=== PATIENT | male | born 1945 | race African-American/Black ===

== ENCOUNTER 2021-03-25 18:49 | Inpatient (IN) | payer SELFPAY ==
[~2021-03-25] VITALS: Ht 185.4 cm; Wt 85.3 kg
[2021-03-25] MEDS ORDERED: LORAZEPAM 2MG/ML CPJ IM STA (19:38)
[2021-03-25] MEDS ORDERED: DIPHENHYDRAMINE 50MG/ML VIAL IM STA (19:38)
[2021-03-25] MEDS ORDERED: HALOPERIDOL LACTATE 5MG/ML VIAL IM STA (19:38)
[2021-03-25 20:38] LABS: *AMPHETAMINES SCREEN URINE NEGATIVE (NEGATIVE)
[2021-03-25 20:39] LABS: *BARBITURATES SCREEN URINE NEGATIVE (NEGATIVE); *BENZODIAZEPINES SCREEN URINE NEGATIVE (NEGATIVE); *COCAINE SCREEN URINE NEGATIVE (NEGATIVE); CANNABINOID URINE SCREEN PRESUMTIVE POSITIVE (NEGATIVE); METHADONE URINE SCREEN NEGATIVE (NEGATIVE); OPIATES URINE SCREEN NEGATIVE (NEGATIVE); PHENCYCLIDINE URINE SCREEN NEGATIVE (NEGATIVE)
[2021-03-25] MEDS ORDERED: HALOPERIDOL LACTATE 5MG/ML VIAL IM ONE (20:45)
[2021-03-25] MEDS ORDERED: LORAZEPAM 2MG/ML CPJ IV ONE ×2 (21:15→23:00)
[2021-03-25 21:23] LABS: BASOPHILS % 0.4 % (0.0-2.0); EOSINOPHILS % 1.2 % (0.0-5.0); HEMATOCRIT. 38.5 % (42.0-52.0); HEMOGLOBIN. 12.8 g/dL (14.0-18.0); LYMPHOCYTES % 9.1 % (20.0-50.0); MEAN CORPUSCULAR HEMOGLOBIN 31.7 pg (28.0-32.0); MEAN CORPUSCULAR VOLUME 94.9 fL (80.0-94.0); MEAN PLATELET VOLUME 9.1 fl (7.4-10.4); MONOCYTES % 6.9 % (2.0-8.0); NEUTROPHILS % 82.4 % (40.0-76.0); PLATELET 245 x1000/uL (130-400); RED BLOOD CELL COUNT 4.06 mill/uL (4.7-6.1); RED CELL DISTRIBUTION WIDTH 14.6 % (11.6-14.6)
[2021-03-25 21:29] LABS: CHLORIDE 112 mEq/L (98-107)
[2021-03-25 21:34] LABS: ETHANOL BLOOD < 10 mg/dL
[2021-03-25] MEDS ORDERED: SODIUM CHLORIDE 0.9% 1,000 ML IV ONE (22:00)
[2021-03-26] MEDS ORDERED: LORAZEPAM 2MG/ML CPJ IV PRN (07:45)
[2021-03-26] MEDS ORDERED: HALOPERIDOL LACTATE 5MG/ML VIAL IM PRN (10:30)
[2021-03-26] MEDS ORDERED: DEXTROSE 50% WATER 50ML SYRINGE IV PRN (10:30)
[2021-03-26] MEDS ORDERED: ONDANSETRON HCL 4MG/2ML INJ IV PRN (10:30)
[2021-03-26] MEDS: SODIUM CHLORIDE 0.45% 1,000 ML IV SCH ×2 (10:30→23:50)
[2021-03-26] MEDS ORDERED: ACETAMINOPHEN 325MG TABLET PO PRN (10:30)
[2021-03-26] MEDS: LORAZEPAM 2MG/ML CPJ IV PRN ×2 (10:44→17:10)
[2021-03-26] MEDS: BLOOD SUGAR DIAGNOSTIC STRIP TEST SCH ×3 (11:30→21:41)
[2021-03-26] MEDS: INSULIN LISPRO 100 UNITS/ML SUBCUT SCH ×3 (17:00→21:00)
[2021-03-26] MEDS ORDERED: HALOPERIDOL LACTATE 5MG/ML VIAL IM NR (18:30)
[2021-03-26 20:52] LABS: CLARITY URINE CLEAR (CLEAR); COLOR URINE YELLOW (YELLOW); KETONES URINE NEGATIVE (NEGATIVE); LEUKOCYTE ESTERASE URINE NEGATIVE (NEGATIVE); NITRITE URINE NEGATIVE (NEGATIVE); OCCULT BLOOD URINE 3+ (NEGATIVE); PH URINE 5.5 (4.5-8.0); PROTEIN URINE 3+ (NEGATIVE); SPECIFIC GRAVITY URINE 1.018 (1.005-1.030); UROBILINOGEN URINE 0.2 E.U./dL (0.2-1.0)
[2021-03-26 22:10] VITALS: BP 147/87
[2021-03-27] VITALS: BP 147/87
[2021-03-27 04:00] VITALS: BP 144/91
[2021-03-27] MEDS ORDERED: LISI10TA26 MT (04:46)
[2021-03-27] MEDS ORDERED: METF500T MT (04:46)
[2021-03-27] MEDS ORDERED: HYDR-4135 MT (04:48)
[2021-03-27] MEDS: BLOOD SUGAR DIAGNOSTIC STRIP TEST SCH ×2 (06:42→13:13)
[2021-03-27 07:13] LABS: BASOPHILS % 0.5 % (0.0-2.0); EOSINOPHILS % 2.3 % (0.0-5.0); HEMATOCRIT. 41.2 % (42.0-52.0); HEMOGLOBIN. 13.9 g/dL (14.0-18.0); LYMPHOCYTES % 15.8 % (20.0-50.0); MEAN CORPUSCULAR HEMOGLOBIN 31.9 pg (28.0-32.0); MEAN CORPUSCULAR VOLUME 94.9 fL (80.0-94.0); MEAN PLATELET VOLUME 9.4 fl (7.4-10.4); MONOCYTES % 8.4 % (2.0-8.0); PLATELET 251 x1000/uL (130-400); RED BLOOD CELL COUNT 4.35 mill/uL (4.7-6.1); RED CELL DISTRIBUTION WIDTH 14.5 % (11.6-14.6)
[2021-03-27 07:43] LABS: CHLORIDE 111 mEq/L (98-107)
[2021-03-27 08:00] VITALS: BP 162/96
[2021-03-27] MEDS: INSULIN LISPRO 100 UNITS/ML SUBCUT SCH ×2 (08:35→13:13)
[2021-03-27 12:00] VITALS: BP 145/93
[2021-03-27] MEDS: SODIUM CHLORIDE 0.45% 1,000 ML IV SCH (13:10)
[2021-03-27 16:00] VITALS: BP 142/83
[2021-03-27] MEDS ORDERED: AMLODIPINE 10MG TABLET PO SCH (16:00)
[2021-03-27 17:09] VITALS: BP 145/93
== END 2021-03-27 17:55 | disposition home or self-care (01) | DRG 469 ==
LOC: ER 18:49 → MICUSO 03-26 01:55 → EDBEDREQ 03-26 01:59 → EDBEDREQTM 03-26 01:59 → 6WST 03-26 21:14
PROVIDERS: ADMIT Internal Medicine; ATTEND Internal Medicine
DX: N17.0 Acute kidney failure with tubular necrosis (principal); G93.41 Metabolic encephalopathy; D64.9 Anemia, unspecified; E11.9 Type 2 diabetes mellitus without complications; F12.90 Cannabis use, unspecified, uncomplicated; G93.89 Other specified disorders of brain; Z20.822 Contact with and (suspected) exposure to COVID-19; Z78.1 Physical restraint status
CPT/HCPCS: 36415; 80048; 80053; 80305; 80320; 81003; 82140; 82962; 83036; 84443; 85025; 87426; 93005; 99291; J1200; J1630; J1815; J2060; J7030; G0480